=== PATIENT | female | born 1950 | race Caucasian/White ===

== ENCOUNTER → 2018-01-05 18:50 | Outpatient (CLI) | payer MEDICARE, OTHER, SELFPAY ==
[2018-01-09 13:20] LABS: HPV APTIMA, High Risk Negative (Negative)
== END ==
PROVIDERS: Visit Provider Obstetrics & Gynecology
DX: N87.0 Mild cervical dysplasia (principal)
CPT/HCPCS: 88175; G0145

== ENCOUNTER → 2019-02-22 13:58 | Outpatient (CLI) | payer MEDICARE, OTHER, SELFPAY ==
[2019-02-25 16:21] LABS: HPV APTIMA, High Risk Negative (Negative)
== END ==
PROVIDERS: Visit Provider Obstetrics & Gynecology
DX: Z87.410 Personal history of cervical dysplasia (principal); Z12.4 Encounter for screening for malignant neoplasm of cervix
CPT/HCPCS: 87624; 88175; G0145